=== PATIENT | female | born 1990 | race Caucasian/White ===

== ENCOUNTER 2017-04-11 15:37 | Outpatient (CLI) | payer OTHER ==
--- NOTE | 2017-04-11 16:01 | RAD ---
TWO TO THREE VIEW LUMBAR SPINE SERIES: COMPARISON: No prior comparison. CLINICAL HISTORY: Back pain. FINDINGS: Mild superior end plate irregularities of the L2 and L3 vertebral segments are present, age-indetermi kyle. These relate to recent compression injuries. Recommend clinical correlation. There is minima l associated height loss. No significant subluxation. IMPRESSION: Minimal superior end plate irregularities which may relate to prior trauma at the L2 and L3 segments. Correlate clinically and, as necessary, imaging followup may be obtained. POS: [facility]
== END 2017-04-11 15:38 | disposition home or self-care (01) ==
LOC: TBSIIMAG 15:37
PROVIDERS: ATTEND Physician Assistant
DX: M54.9 Dorsalgia, unspecified (principal)
CPT/HCPCS: 72100

== ENCOUNTER 2017-04-18 09:49 | Emergency (ER) | payer OTHER ==
[~2017-04-18 09:49] MED LIST: Iopamidol 370 76% 100 ML VIAL ONE
[2017-04-18 10:34] LABS: ALT (SGPT) 16 U/L (8-55); AST (SGOT) 14 U/L (5-34); Alkaline Phosphatase 64 U/L (40-150); Anion Gap 17 mmol/L (10-20); BUN (Urea Nitrogen) 12 mg/dL (7.0-18.7); Bilirubin, Total 1.1 mg/dL (0.2-1.2); CK (CPK) 29 U/L (29-168); Calc. Creatinine Clearance 0 mL/min (70-130); Carbon Dioxide 22 mmol/L (22-29); Chloride 104 mmol/L (98-107); Estimated GFR-MDRD Greater than 90; Globulin 3.5 g/dL (2.4-3.5); Protein, Total 8.1 g/dL (6.0-8.3)
[2017-04-18 10:37] LABS: Troponin I Less than 0.010 ng/mL (< 0.028)
[2017-04-18 10:39] LABS: #Basophils 0.1 thou/uL (0.0-0.2); #Eosinphils 0.1 thou/uL (0.0-0.7); #Monocytes 0.4 thou/uL (0.11-0.59); #Neutrophils 2.9 thou/uL (1.40-6.50); %Basophils 1.1 % (0.0-1.0); %Eosinophils 2.3 % (0.0-10.0); %Lymphocytes 36.6 % (21.0-51.0); %Monocytes 6.5 % (0.0-10.0); Hematocrit 33.7 % (36.0-47.0); Hypochromia MODERATE=16-30 cells (100X) (0-5/hpf); Mean Platelet Volume 10.2 fL (7.4-10.4); Microcytosis MODERATE=15-30 cells (100X) (0-5/hpf); Polychromasia SLIGHT = 2-3 cells (100X) (0-2/hpf); Red Blood Cell (RBC) Count 5.12 mill/uL (4.20-5.40); White Blood Cell (WBC) Count 5.4 thou/uL (4.8-10.8)
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
[2017-04-18] MEDS ORDERED: Morphine 4 MG/ML Carpuject ONE (11:54)
[2017-04-18] MEDS ORDERED: Bupivacaine 0.5% 10 ML VIAL ONE (11:54)
[2017-04-18] MEDS ORDERED: Ondansetron HCl/PF 4 MG/2 ML Vial ONE (11:55)
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
[2017-04-18 13:26] LABS: Hematocrit 28.3 % (36.0-47.0)
[2017-04-18 13:31] LABS: Bilirubin Negative (Negative); Blood, Urine Negative (Negative); Glucose, Urine (Dipstick) Negative (Negative); Ketone, Urine 15 mg/dL (Negative); Nitrite Negative (Negative); Protein, Urine (Dipstick) Negative (Neg-Trace); Urobilinogen 0.2 mg/dL (0.2-1.0)
--- NOTE | 2017-04-18 14:25 | RAD ---
2 VIEWS RIGHT HAND: Date: 04/18/17 HISTORY: Fractures of right hand metacarpal bones. FINDINGS: Splint material now overlies the right hand and wrist. Previously described fractures involving the t hird through fifth metacarpals are again seen, and the fracture alignment is unchanged. IMPRESSION: Splint material now overlies the hand and there is stable positioning and alignment of fractures invo lving the third through fifth metacarpals. POS: [facility]
--- NOTE | 2017-04-18 14:33 | CT ---
CT ANGIOGRAM THORAX WITH IV CONTRAST AND 3D RECONSTRUCTIONS: Date: 04/18/17 HISTORY: Multiple syncopal episodes this seek. Elevated D-Dimer. COMPARISON: None available. FINDINGS: No filling defects are seen in the pulmonary arteries to suggest pulmonary embolus. Thoracic aorta is normal in caliber without evidence of an aortic dissection. The lungs are clear without evidence of a pulmonary nodule, mass, or pleural effusion. No enlarged lymph nodes are seen by CT size criteria. Visualized upper abdomen has a normal CT appearance. IMPRESSION: No CT evidence of a pulmonary embolus. POS: [facility]
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
== END 2017-04-18 16:00 | disposition home or self-care (01) ==
LOC: SCSER 09:49
DX: S62.304A Unspecified fracture of fourth metacarpal bone, right hand, initial encounter for closed fracture (principal); S62.302A Unspecified fracture of third metacarpal bone, right hand, initial encounter for closed fracture; S62.306A Unspecified fracture of fifth metacarpal bone, right hand, initial encounter for closed fracture; D50.0 Iron deficiency anemia secondary to blood loss (chronic); V89.2XXA Person injured in unspecified motor-vehicle accident, traffic, initial encounter
CPT/HCPCS: 26605; 70450; 71275; 74177; 80053; 81003; 81025; 82553; 83605; 84484; 84703; 85025; 85379; 93005; 96361; 96374; 96375; J2270; J2405; J3490

== ENCOUNTER 2017-04-30 10:37 | Day surgery (SDC) | payer OTHER ==
[2017-04-29 11:07] VITALS: BMI 20.7
[2017-04-30 11:30] LABS: Hematocrit 40.3 % (36.0-47.0); Mean Platelet Volume 8.2 fL (7.4-10.4)
[2017-04-30] MEDS ORDERED: Fentanyl 100 MCG/2 ML VIAL ONE ×2 (11:49→12:04)
[2017-04-30] MEDS ORDERED: Midazolam HCl 2 mg/2 ml Vial ONE (11:49)
[2017-04-30] MEDS ORDERED: CEFAZOLIN/Water 2 GM/20 ML SYRINGE ONE (11:52)
[2017-04-30 11:56] LABS: #Basophils 0.1 thou/uL (0.0-0.2); #Eosinphils 0.3 thou/uL (0.0-0.7); #Lymphocytes 2.4 thou/uL (1.20-3.40); #Monocytes 0.5 thou/uL (0.11-0.59); #Neutrophils 3.8 thou/uL (1.40-6.50); %Basophils 1.1 % (0.0-1.0); %Eosinophils 3.7 % (0.0-10.0); %Lymphocytes 34.2 % (21.0-51.0); %Monocytes 6.4 % (0.0-10.0); Anisocytosis SLIGHT = 6-15 cells (100X) (0-5/hpf); Hypochromia SLIGHT = 6-15 cells (100X) (0-5/hpf); Microcytosis SLIGHT = 6-15 cells (100X) (0-5/hpf); Ovalocytes SLIGHT = 2-5 cells (100X) (0-1/hpf)
[2017-04-30] MEDS ORDERED: Bupivacaine PF 0.5% 30 ML VIAL ONE (12:05)
[2017-04-30] MEDS ORDERED: Bacitracin Zinc Ointment 30 gm TUBE ONE (12:05)
[2017-04-30] MEDS ORDERED: Ketorolac Tromethamine 30 MG/ML VIAL IVP PRN (12:16)
[2017-04-30] MEDS ORDERED: Ondansetron HCl/PF 4 MG/2 ML Vial IVP PRN (12:16)
[2017-04-30] MEDS ORDERED: HYDROcodone/Acetaminophen 10/325 mg Tablet PO PRN ×2 (12:16)
[2017-04-30] MEDS ORDERED: traMADol HCl 50 MG TAB PO PRN ×2 (12:16)
[2017-04-30] MEDS ORDERED: Zolpidem Tartrate 5 MG TAB PO PRN (12:16)
[2017-04-30] MEDS ORDERED: Ropivacaine 0.2% 550 ML 550 ML NERVE BLCK SCH (12:16)
[2017-04-30] MEDS ORDERED: Promethazine HCl 25 MG/ML VIAL IM PRN (12:16)
[2017-04-30] MEDS ORDERED: Fentanyl 100 MCG/2 ML VIAL IV PRN (12:17)
[2017-04-30] MEDS ORDERED: Ketorolac Tromethamine 30 MG/ML VIAL ONE ×2 (14:49→16:47)
[2017-04-30] MEDS ORDERED: Ropivacaine 0.5% HCl/PF (150 MG/30 ML VIAL) ONE (16:27)
[2017-04-30] MEDS ORDERED: Ropivacaine 0.2% HCl/PF (40 MG/20 ML VIAL) ONE (16:27)
[2017-04-30] MEDS ORDERED: Ondansetron HCl/PF 4 MG/2 ML Vial ONE (16:47)
[2017-04-30] MEDS ORDERED: Dexamethasone 20 MG/5 ML VIAL ONE (16:47)
[2017-04-30] MEDS ORDERED: Propofol 200 MG/20 ML VIAL ONE (16:47)
[2017-04-30] MEDS ORDERED: Lidocaine 1% PF 5 ML VIAL ONE (16:47)
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
--- NOTE | 2017-05-01 07:52 | RAD ---
RIGHT HAND 3 VIEWS: HISTORY: A 26-year-old female for postoperative evaluation. FINDINGS: Three internal fixation screws are noted stabilizing the 3rd, 4th, and 5th metacarpals with satisfact ory position and alignment. IMPRESSION: Postoperative screw placement stabilizing the 3rd, 4th, and 5th metacarpal fractures. POS: [facility]
== END 2017-04-30 16:20 | disposition home or self-care (01) ==
LOC: SDC 10:37
PROVIDERS: ATTEND Orthopaedic Surgery Hand Surgery
PROC: 0PSP04Z Reposition Right Metacarpal with Internal Fixation Device, Open Approach (ICD-10-PCS; principal; 2017-04-30)
DX: S62.322A Displaced fracture of shaft of third metacarpal bone, right hand, initial encounter for closed fracture (principal); S62.324A Displaced fracture of shaft of fourth metacarpal bone, right hand, initial encounter for closed fracture; S62.326A Displaced fracture of shaft of fifth metacarpal bone, right hand, initial encounter for closed fracture
CPT/HCPCS: 36415; 76001; 84703; 85025; 96374; A4306; C1713; J0131; J1100; J1885; J2001; J2250; J2405; J2704; J2795; J3010; J3490; S0020

== ENCOUNTER 2017-05-03 13:32 | Outpatient (CLI) | payer OTHER ==
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
== END 2017-05-03 13:33 | disposition home or self-care (01) ==
LOC: TBSIIMAG 13:32
PROVIDERS: ATTEND Orthopaedic Surgery Hand Surgery
DX: S52.202A Unspecified fracture of shaft of left ulna, initial encounter for closed fracture (principal); S62.102A Fracture of unspecified carpal bone, left wrist, initial encounter for closed fracture; S43.432A Superior glenoid labrum lesion of left shoulder, initial encounter; S52.592A Other fractures of lower end of left radius, initial encounter for closed fracture; S52.612A Displaced fracture of left ulna styloid process, initial encounter for closed fracture; M67.814 Other specified disorders of tendon, left shoulder

== ENCOUNTER 2017-05-07 15:03 | Outpatient (CLI) | payer OTHER ==
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
== END 2017-05-07 15:04 | disposition home or self-care (01) ==
LOC: TBSIIMAG 15:03
PROVIDERS: ATTEND Neurological Surgery
DX: M54.5 Low back pain (principal); S32.029D Unspecified fracture of second lumbar vertebra, subsequent encounter for fracture with routine healing; S32.039D Unspecified fracture of third lumbar vertebra, subsequent encounter for fracture with routine healing
CPT/HCPCS: 72100

== ENCOUNTER 2017-08-27 13:57 | Outpatient (CLI) | payer OTHER ==
--- NOTE | 2017-08-27 15:49 | RAD ---
LUMBAR SPINE SERIES THREE VIEWS: 08/27/17 COMPARISON: 06/25/17 exam. HISTORY: Followup of fractures. Minimal superior end plate compression changes of L2 and L3 are stable as compared to the 06/25/17 exa m. Disc spaces appear fairly well preserved. No spondylolisthesis. IMPRESSION: Stable compression changes superior end plates at L2 and L3. POS: [facility]
== END 2017-08-27 13:58 | disposition home or self-care (01) ==
LOC: TBSIIMAG 13:57
PROVIDERS: ATTEND Neurological Surgery
DX: M54.5 Low back pain (principal)
CPT/HCPCS: 72100